=== PATIENT | female | born 1965 | race Caucasian/White ===

== ENCOUNTER 2020-02-17 06:07 | Emergency (ER) | payer BC ==
[~2020-02-17] VITALS: Ht 172.7 cm; Wt 81.6 kg
[2020-02-17 06:16] VITALS: Ht 172.7 cm; Wt 81.6 kg
[2020-02-17 06:59] LABS: BASOPHIL % 0.1 % (0-2); PLATELET COUNT 182 x10^3mcL (130-400)
[2020-02-17 07:00] LABS: RED CELL DISTRIBUTION WIDTH 14.6 % (11.5-14.5)
[2020-02-17 07:04] LABS: UA SPECIFIC GRAVITY 1.025 (1.005-1.035); microscopic required? YES; urine erythrocyte NEGATIVE (NEGATIVE)
[2020-02-17 07:49] LABS: CALCIUM 9.1 mg/dL (8.5-10.1); CARBON DIOXIDE 28.2 mmol/L (21-32); CHLORIDE SERUM 107 mmol/L (98-107); CREATININE SERUM 0.7 mg/dL (0.6-1.0); GFR1 > 60 mL/min; GLUCOSE SERUM 108 mg/dL (74-106); POTASSIUM SERUM 3.9 mmol/L (3.5-5.1); SODIUM SERUM 143 mmol/L (136-145)
[2020-02-17 07:54] LABS: ALKALINE PHOSPHATASE 115 U/L (46-116); ALT/SGPT 22 U/L (14-59); AST/SGOT 13 U/L (15-37); BILIRUBIN TOTAL 0.31 mg/dL (0.20-1.00); TOTAL PROTEIN, SERUM 6.5 g/dL (6.4-8.2)
[2020-02-17 12:05] VITALS: BP 133/100
== END 2020-02-17 12:05 | disposition short-term general hospital (02) ==
LOC: ED 06:07
PROVIDERS: Emergency Medicine
DX: G40.909 Epilepsy, unspecified, not intractable, without status epilepticus (principal); G93.9 Disorder of brain, unspecified; Z88.2 Allergy status to sulfonamides
CPT/HCPCS: J0696; J1100; J1953; J2060; J7030; Q0092